=== PATIENT | female | born 1940 | race African-American/Black ===

== ENCOUNTER 2022-06-30 14:41 | Emergency (ER) | payer MEDICARE ==
[~2022-06-30] VITALS: Ht 165.1 cm; Wt 63.0 kg
[2022-06-30 14:54] VITALS: BP 147/74
== END 2022-06-30 19:03 | disposition left against medical advice (07) ==
LOC: ER 14:41
DX: Z53.21 Procedure and treatment not carried out due to patient leaving prior to being seen by health care provider (principal)

== ENCOUNTER 2022-12-03 20:13 | Emergency (ER) | payer MEDICARE ==
[~2022-12-03] VITALS: Ht 162.6 cm; Wt 70.0 kg
[2022-12-03 20:22] VITALS: BP 147/69
[2022-12-03] MEDS ORDERED: ACETAMINOPHEN 325MG TABLET PO NR (21:15)
[2022-12-03] MEDS ORDERED: LIDO700A15 TP ×3 (21:19→21:31)
== END 2022-12-03 21:30 | disposition home or self-care (01) ==
LOC: ER 20:13
DX: M24.521 Contracture, right elbow (principal); I10 Essential (primary) hypertension; M19.90 Unspecified osteoarthritis, unspecified site; Z86.73 Personal history of transient ischemic attack (TIA), and cerebral infarction without residual deficits; Z88.0 Allergy status to penicillin
CPT/HCPCS: 99283

== ENCOUNTER 2023-01-09 10:44 | Inpatient (IN) | payer MEDICARE, MEDICAID ==
[~2023-01-09] VITALS: Ht 162.6 cm; Wt 62.6 kg
[~2023-01-09 10:44] MED LIST: LIDO700A15 TP
[2023-01-09] MEDS ORDERED: HYDROCODONE/ACETAMINOPHEN 5/325MG TABLET PO STA (11:17)
[2023-01-09 12:10] LABS: EOSINOPHILS % 2.6 % (0.0-5.0); HEMATOCRIT. 33.9 % (36.0-48.0); HEMOGLOBIN. 11.2 g/dL (12.0-16.0); LYMPHOCYTES % 21.9 % (20.0-50.0); MEAN CORPUSCULAR HEMOGLOBIN 25.7 pg (28.0-32.0); MEAN CORPUSCULAR VOLUME 77.9 fL (81.0-99.0); MONOCYTES % 7.2 % (2.0-8.0); NEUTROPHILS % 67.3 % (40.0-76.0); PLATELET 354 x1000/uL (130-400); RED BLOOD CELL COUNT 4.36 mill/uL (4.2-5.4); RED CELL DISTRIBUTION WIDTH 13.9 % (11.6-14.6)
[2023-01-09 12:17] LABS: CHLORIDE 107 mEq/L (98-107)
[2023-01-09 16:59] LABS: CLARITY URINE CLOUDY (CLEAR); COLOR URINE YELLOW (YELLOW); KETONES URINE NEGATIVE (NEGATIVE); LEUKOCYTE ESTERASE URINE NEGATIVE (NEGATIVE); NITRITE URINE NEGATIVE (NEGATIVE); OCCULT BLOOD URINE TRACE (NEGATIVE); PROTEIN URINE NEGATIVE (NEGATIVE); SPECIFIC GRAVITY URINE 1.011 (1.005-1.030)
[2023-01-09] MEDS ORDERED: ASPIRIN 81MG TABLET PO ONE (23:45)
[2023-01-10] MEDS ORDERED: ACETAMINOPHEN 325MG TABLET PO ONE (03:30)
[2023-01-10] MEDS ORDERED: ONDANSETRON HCL 4MG/2ML INJ IV PRN (11:00)
[2023-01-10 12:00] VITALS: BP 145/63
[2023-01-10 12:08] VITALS: BP 142/63
[2023-01-10] MEDS: CLOPIDOGREL 75MG TABLET PO SCH (12:33)
[2023-01-10] MEDS: ACETAMINOPHEN 325MG TABLET PO PRN (12:34)
[2023-01-10] MEDS ORDERED: LACTULOSE 20G/30ML UDC PO SCH (12:45)
[2023-01-10] MEDS ORDERED: LOSA50TA41 MT (13:00)
[2023-01-10] MEDS ORDERED: CYAN50003 PO (13:03)
[2023-01-10] MEDS ORDERED: BACL-141 PO (13:03)
[2023-01-10] MEDS: ENOXAPARIN 40MG/0.4ML SYR SUBCUT SCH (13:35)
[2023-01-10] MEDS: DOCUSATE SODIUM 250MG CAPSULE PO SCH (13:39)
[2023-01-10] MEDS ORDERED: LACTULOSE 20G/30ML UDC PO PRN (15:17)
[2023-01-10 16:00] VITALS: BP 141/58
[2023-01-10 20:00] VITALS: BP 142/50
[2023-01-10] MEDS: ATORVASTATIN CALCIUM 20MG TABLET PO SCH (21:27)
[2023-01-10] MEDS: AMLODIPINE 2.5MG TABLET PO SCH (21:27)
[2023-01-11] VITALS: BP 147/78
[2023-01-11 04:00] VITALS: BP 138/56
[2023-01-11 08:00] VITALS: BP 133/59
[2023-01-11] MEDS: CLOPIDOGREL 75MG TABLET PO SCH (09:31)
[2023-01-11] MEDS: DOCUSATE SODIUM 250MG CAPSULE PO SCH (09:31)
[2023-01-11] MEDS: AMLODIPINE 2.5MG TABLET PO SCH ×2 (09:33→21:14)
[2023-01-11 12:00] VITALS: BP 128/64
[2023-01-11] MEDS: ENOXAPARIN 40MG/0.4ML SYR SUBCUT SCH (12:59)
[2023-01-11] MEDS: ACETAMINOPHEN 325MG TABLET PO PRN (13:00)
[2023-01-11 16:00] VITALS: BP_SYST 123; BP_SYST 126; BP_DIAS 50; BP_DIAS 76
[2023-01-11 20:00] VITALS: BP 112/56
[2023-01-11] MEDS: ATORVASTATIN CALCIUM 20MG TABLET PO SCH (21:14)
[2023-01-12] VITALS: BP 144/56
[2023-01-12 04:00] VITALS: BP 111/70
[2023-01-12 08:00] VITALS: BP 129/58
[2023-01-12] MEDS: DOCUSATE SODIUM 250MG CAPSULE PO SCH (09:22)
[2023-01-12] MEDS: CLOPIDOGREL 75MG TABLET PO SCH (09:22)
[2023-01-12] MEDS: AMLODIPINE 2.5MG TABLET PO SCH ×2 (09:22→21:02)
[2023-01-12] MEDS: ACETAMINOPHEN 325MG TABLET PO PRN (09:28)
[2023-01-12 12:00] VITALS: BP 123/56
[2023-01-12] MEDS: ENOXAPARIN 40MG/0.4ML SYR SUBCUT SCH (12:07)
[2023-01-12] MEDS: LORAZEPAM 0.5MG TABLET PO PRN ×2 (12:07→21:02)
[2023-01-12 16:00] VITALS: BP 113/55
[2023-01-12] MEDS: DICLOFENAC SODIUM 1% GEL 50GM TOP SCH (16:57)
[2023-01-12 20:00] VITALS: BP 116/52
[2023-01-12] MEDS: ATORVASTATIN CALCIUM 20MG TABLET PO SCH (21:02)
[2023-01-13] VITALS: BP 118/70
[2023-01-13 04:00] VITALS: BP 150/89
[2023-01-13 08:00] VITALS: BP 143/61
[2023-01-13] MEDS: CLOPIDOGREL 75MG TABLET PO SCH (09:09)
[2023-01-13] MEDS: DICLOFENAC SODIUM 1% GEL 50GM TOP SCH ×2 (09:10→18:31)
[2023-01-13] MEDS: DOCUSATE SODIUM 250MG CAPSULE PO SCH (09:10)
[2023-01-13] MEDS: AMLODIPINE 2.5MG TABLET PO SCH ×2 (09:10→21:43)
[2023-01-13 10:11] LABS: BASOPHILS % 0.6 % (0.0-2.0); EOSINOPHILS % 4.9 % (0.0-5.0); HEMATOCRIT. 35.9 % (36.0-48.0); HEMOGLOBIN. 11.6 g/dL (12.0-16.0); LYMPHOCYTES % 23.3 % (20.0-50.0); MEAN CORPUSCULAR HEMOGLOBIN 25.3 pg (28.0-32.0); MEAN PLATELET VOLUME 8.1 fl (7.4-10.4); MONOCYTES % 6.7 % (2.0-8.0); NEUTROPHILS % 64.5 % (40.0-76.0); PLATELET 326 x1000/uL (130-400); RED CELL DISTRIBUTION WIDTH 14.5 % (11.6-14.6)
[2023-01-13 10:13] LABS: CHLORIDE 104 mEq/L (98-107)
[2023-01-13 12:00] VITALS: BP 153/71
[2023-01-13] MEDS: ENOXAPARIN 40MG/0.4ML SYR SUBCUT SCH (13:42)
[2023-01-13 16:00] VITALS: BP 139/69
[2023-01-13 20:00] VITALS: BP 135/58
[2023-01-13] MEDS: ATORVASTATIN CALCIUM 20MG TABLET PO SCH (21:42)
[2023-01-13] MEDS: LORAZEPAM 0.5MG TABLET PO PRN (21:43)
[2023-01-14] VITALS: BP 135/63
[2023-01-14 04:00] VITALS: BP 137/54
[2023-01-14 08:00] VITALS: BP 144/71
[2023-01-14] MEDS: AMLODIPINE 2.5MG TABLET PO SCH (08:26)
[2023-01-14] MEDS: DOCUSATE SODIUM 250MG CAPSULE PO SCH (08:26)
[2023-01-14] MEDS: CLOPIDOGREL 75MG TABLET PO SCH (08:26)
[2023-01-14] MEDS: DICLOFENAC SODIUM 1% GEL 50GM TOP SCH ×2 (09:00→17:00)
[2023-01-14 12:00] VITALS: BP 140/68
[2023-01-14 12:52] VITALS: BP 135/65
[2023-01-14] MEDS: ENOXAPARIN 40MG/0.4ML SYR SUBCUT SCH (14:10)
[2023-01-14 16:00] VITALS: BP 154/73
[2023-01-14] MEDS ORDERED: ATOR20TA PO (17:06)
[2023-01-14] MEDS ORDERED: DOCU250C14 PO (17:06)
[2023-01-14] MEDS ORDERED: AMLO2.5T45 PO (17:06)
== END 2023-01-14 18:30 | DRG 57 ==
LOC: ER 10:44 → 7EST 01-10 05:31 → EDBEDREQTM 01-10 05:47 → EDBEDREQ 01-10 05:47
PROVIDERS: ADMIT Internal Medicine; ATTEND Internal Medicine
DX: G20 Parkinson's disease (principal); E44.1 Mild protein-calorie malnutrition; I69.351 Hemiplegia and hemiparesis following cerebral infarction affecting right dominant side; R07.89 Other chest pain; I10 Essential (primary) hypertension; J44.9 Chronic obstructive pulmonary disease, unspecified; R62.7 Adult failure to thrive; Z20.822 Contact with and (suspected) exposure to COVID-19; E78.5 Hyperlipidemia, unspecified; M19.90 Unspecified osteoarthritis, unspecified site; Z88.0 Allergy status to penicillin; Z79.899 Other long term (current) drug therapy; Z68.23 Body mass index [BMI] 23.0-23.9, adult
CPT/HCPCS: 36415; 71045; 73130; 80048; 80053; 81003; 83880; 84484; 85025; 87426; 93005; 93306; 97162; 97166; 97535; 99285; C9803; J1650